=== PATIENT | female | born 1935 | race Caucasian/White ===

== ENCOUNTER 2016-04-25 12:38 | Outpatient (CLI) | payer MEDICARE, OTHER | END 2016-04-25 12:39 | disposition home or self-care (01) | DX: N30.01 Acute cystitis with hematuria (principal) ==

== ENCOUNTER 2016-07-14 07:25 | Outpatient (CLI) | payer MEDICARE, OTHER | END 2016-07-14 07:26 | disposition home or self-care (01) | DX: N30.01 Acute cystitis with hematuria (principal) ==

== ENCOUNTER 2016-07-19 19:27 | Outpatient (CLI) | payer MEDICARE, OTHER | END 2016-07-19 19:28 | disposition home or self-care (01) | DX: Z79.899 Other long term (current) drug therapy (principal); E78.2 Mixed hyperlipidemia; E03.9 Hypothyroidism, unspecified; R73.09 Other abnormal glucose ==

== ENCOUNTER 2017-05-22 15:03 | Outpatient (CLI) | payer MEDICARE, OTHER ==
--- NOTE | 2017-05-23 10:29 | DEXA Report ---
DEXA SCAN: 05/22/2017 CLINICAL INDICATION: Postmenopausal osteoporosis. TECHNIQUE: Dual energy x-ray absorptiometry (DXA) was performed on a [employer] system. Regions measured are the AP spine, femoral neck, and, if needed, forearm. COMPARISON: None. In accordance with the International Society for Clinical Densitometry (ISCD) guidelines, data from previous exams may be reanalyzed using current recommendations and techniques. This is done to allow a more accurate basis for comparison with the current study. FINDINGS: The data for the lumbar spine is as follows: REGION BMD (g/cm/cm) T-SCORE Z-SCORE L1 0.739 -3.3 -1.3 L2 0.851 -2.9 -0.9 L3 0.846 -3.0 -0.9 L4 0.923 -2.3 -0.3 TOTAL 0.846 -2.8 -0.8 NOTE: All evaluable vertebrae are used for classification. The data for the hip is as follows: REGION BMD (g/cm/cm) T-SCORE Z-SCORE Neck 0.775 -1.9 0.5 TOTAL 0.828 -1.4 0.9 IMPRESSION: THE WHO CLASSIFICATION BASED ON THE INTERNATIONAL REFERENCE STANDARD IS OSTEOPOROSIS. THE FRACTURE RISK IS HIGH. RECOMMENDATION: Patients with diagnosis of osteoporosis or osteopenia should have regular bone mineral density assessment. For those eligible for Medicare, routine testing is allowed once every 2 years. Testing frequency can be increased for patients who have rapidly progressing disease or for those who are receiving medical therapy to restore bone mass. COMMENT: World Health Organization (WHO) definitions for osteoporosis and osteopenia: NORMAL BMD: T-score at 1.0 or higher, fracture risk is low. OSTEOPENIA BMD: T-score between 1.0 and -2.5, fracture risk is increased. OSTEOPOROSIS BMD: T-score at 2.5 or lower, fracture risk high. National Osteoporosis Foundation recommends: 1. Obtain adequate dietary calcium (at least 1200 mg per day) and vitamin D (400 -800 international units per day). 2. Participate, as appropriate, in regular weightbearing and muscle- strengthening exercise. 3. Avoid tobacco use and reduce alcohol and caffeine intake. 4. For more detailed information see the website at www.NOF.org. MTDD
== END 2017-05-22 15:04 | disposition home or self-care (01) ==
LOC: DI 15:03
PROVIDERS: ATTEND Internal Medicine
DX: M81.0 Age-related osteoporosis without current pathological fracture (principal)
CPT/HCPCS: 77080

== ENCOUNTER 2017-08-09 08:00 | Outpatient (CLI) | payer MEDICARE, OTHER ==
[2017-08-09 11:32] LABS: BASOPHILS # (AUTO) 0.1 10^3/uL (0.0-0.1); BASOPHILS % (AUTO) 1.3 %; EOSINOPHILS # (AUTO) 0.2 10^3/uL (0.0-0.7); EOSINOPHILS % (AUTO) 4.4 %; HGB - HEMOGLOBIN 13.7 g/dL (12.0-16.0); LYMPHOCYTES # (AUTO) 1.4 10^3/uL (1.5-3.5); LYMPHOCYTES % (AUTO) 27.9 %; MEAN CORPUSCULAR HEMOGLOBIN 30.8 pg (27.0-31.0); MEAN CORPUSCULAR HGB CONC 33.5 g/dL (32.0-36.0); MEAN CORPUSCULAR VOLUME 91.9 fL (81.0-99.0); MEAN PLATELET VOLUME 8.8 fL (7.9-10.8); MONOCYTES # (AUTO) 0.6 10^3/uL (0.0-1.0); MONOCYTES % (AUTO) 11.6 %; NEUTROPHILS # (AUTO) 2.8 10^3/uL (1.5-6.6); NEUTROPHILS % (AUTO) 54.8 %; PLT - PLATELET COUNT 202 10^3/uL (130-450); RED BLOOD COUNT 4.46 10^6/uL (4.20-5.40); RED CELL DISTRIBUTION WIDTH 14.4 % (12.0-15.0)
[2017-08-09 11:52] LABS: ALBUMIN 4.2 g/dL (3.2-5.5); ALBUMIN/GLOBULIN RATIO 1.4 (1.0-2.2); ALKALINE PHOSPHATASE 53 IU/L (42-121); ALT ALANINE AMINOTRANSFERASE 13 IU/L (10-60); AST ASPARTATE AMINOTRANSFERASE 19 IU/L (10-42); BILIRUBIN,TOTAL 0.7 mg/dL (0.2-1.0); BUN - BLOOD UREA NITROGEN 15 mg/dL (6-20); CALCIUM 9.2 mg/dL (8.5-10.3); CARBON DIOXIDE - CO2 25 mmol/L (21-32); CHLORIDE 108 mmol/L (101-111); CHOL/HDL RATIO 3.9 (<4.4); CHOLESTEROL 223 mg/dL; CREATININE 0.8 mg/dL (0.4-1.0); GFR - MDRD 69 (>89); GLUCOSE 114 mg/dL (70-100); HDL CHOLESTEROL 57 mg/dL; LDL CHOLESTEROL,CALCULATED 133 mg/dL; LDL/HDL RATIO 2.3 (<4.4); SODIUM 140 mmol/L (135-145); TOTAL PROTEIN 7.2 g/dL (6.7-8.2); VLDL CHOLESTEROL 33 mg/dL
[2017-08-09 11:53] LABS: LITHIUM 0.31 mmol/L
== END 2017-08-09 08:01 ==
LOC: LAB.R 08:00
PROVIDERS: ATTEND Internal Medicine
DX: E78.5 Hyperlipidemia, unspecified (principal); E03.9 Hypothyroidism, unspecified; M81.8 Other osteoporosis without current pathological fracture; F31.9 Bipolar disorder, unspecified
CPT/HCPCS: 80053; 80061; 80178; 83721; 84443; 85025

== ENCOUNTER 2017-08-28 15:39 | Outpatient (CLI) | payer MEDICARE, OTHER ==
--- NOTE | 2017-08-30 11:06 | Mammography Report ---
DIGITAL SCREENING MAMMOGRAM: 08/28/2017 TECHNIQUE: Bilateral digital CC, exaggerated CC, and MLO projections. COMPARISON: 08/10/2015, 06/26/2013, 06/06/2011 and 03/11/2010. FINDINGS: The breast tissue is heterogeneously dense. There is no dominant mass, architectural distortion, skin thickening, suspicious microcalcifications or interval change. IMPRESSION: NEGATIVE. BI-RADS CODE 1-NEGATIVE. SUGGEST RETURN TO ROUTINE SCREENING IN 12 MONTHS. STANDARD QUALIFYING STATEMENTS: 1. This examination was reviewed with the aid of Computer-Aided Detection (CAD). 2. A negative or benign imaging report should not delay biopsy if clinically suspicious findings are present. Consider surgical consultation if warranted. More than 5% of cancers are not identified by imaging. 3. Dense breasts may obscure an underlying neoplasm. TD: 08/30/2017 10:15
== END 2017-08-28 15:40 | disposition home or self-care (01) ==
LOC: DI 15:39
PROVIDERS: ATTEND Internal Medicine
DX: Z12.31 Encounter for screening mammogram for malignant neoplasm of breast (principal)
CPT/HCPCS: 77067

== ENCOUNTER 2017-10-09 08:00 | Outpatient (CLI) | payer MEDICARE, OTHER ==
[2017-10-09 12:02] LABS: HB2 TOTAL 14.4 g/dL; HEMOGLOBIN A1C 0.6 g/dL
== END 2017-10-09 08:01 ==
LOC: LAB.R 08:00
PROVIDERS: ATTEND Internal Medicine
DX: R73.9 Hyperglycemia, unspecified (principal); E03.9 Hypothyroidism, unspecified
CPT/HCPCS: 82947; 83036; 84443

== ENCOUNTER 2019-01-15 08:15 | Outpatient (CLI) | payer MEDICARE ==
[2019-01-15 08:43] LABS: BASOPHILS # (AUTO) 0.1 10^3/uL (0.0-0.1); BASOPHILS % (AUTO) 0.8 %; EOSINOPHILS # (AUTO) 0.3 10^3/uL (0.0-0.7); EOSINOPHILS % (AUTO) 3.5 %; HGB - HEMOGLOBIN 13.7 g/dL (12.0-16.0); LYMPHOCYTES # (AUTO) 1.5 10^3/uL (1.5-3.5); LYMPHOCYTES % (AUTO) 17.3 %; MEAN CORPUSCULAR HEMOGLOBIN 30.4 pg (27.0-31.0); MEAN CORPUSCULAR HGB CONC 31.6 g/dL (32.0-36.0); MEAN CORPUSCULAR VOLUME 96.2 fL (81.0-99.0); MEAN PLATELET VOLUME 9.8 fL (7.9-10.8); MONOCYTES # (AUTO) 1.1 10^3/uL (0.0-1.0); MONOCYTES % (AUTO) 12.8 %; NEUTROPHILS # (AUTO) 5.6 10^3/uL (1.5-6.6); NEUTROPHILS % (AUTO) 65.3 %; PLT - PLATELET COUNT 221 10^3/uL (130-450); RED CELL DISTRIBUTION WIDTH 13.6 % (12.0-15.0); WHITE BLOOD COUNT 8.6 x10^3/uL (4.8-10.8)
[2019-01-15 09:04] LABS: ALBUMIN/GLOBULIN RATIO 1.2 (1.0-2.2); ALKALINE PHOSPHATASE 56 IU/L (42-121); ALT ALANINE AMINOTRANSFERASE 10 IU/L (10-60); AST ASPARTATE AMINOTRANSFERASE 14 IU/L (10-42); BILIRUBIN,TOTAL 0.8 mg/dL (0.2-1.0); BUN - BLOOD UREA NITROGEN 17 mg/dL (6-20); CALCIUM 9.5 mg/dL (8.5-10.3); CARBON DIOXIDE - CO2 25 mmol/L (21-32); CHLORIDE 109 mmol/L (101-111); CHOL/HDL RATIO 3.5 (<4.4); CHOLESTEROL 219 mg/dL; CREATININE 0.8 mg/dL (0.4-1.0); GFR - MDRD 68 (>89); GLUCOSE 129 mg/dL (70-100); HDL CHOLESTEROL 63 mg/dL; LDL CHOLESTEROL,CALCULATED 135 mg/dL; LDL/HDL RATIO 2.1 (<4.4); SODIUM 143 mmol/L (135-145); TOTAL PROTEIN 7.3 g/dL (6.7-8.2); VLDL CHOLESTEROL 21 mg/dL
[2019-01-15 10:09] LABS: LITHIUM 0.29 mmol/L
== END 2019-01-15 08:16 | disposition home or self-care (01) ==
LOC: LAB 08:15
PROVIDERS: ATTEND Nurse Practitioner
DX: G62.9 Polyneuropathy, unspecified (principal); R73.9 Hyperglycemia, unspecified; E78.5 Hyperlipidemia, unspecified; E03.9 Hypothyroidism, unspecified; M81.8 Other osteoporosis without current pathological fracture; F31.9 Bipolar disorder, unspecified
CPT/HCPCS: 36415; 80053; 80061; 80178; 82306; 83721; 84443; 85025

== ENCOUNTER 2019-01-28 09:37 | Outpatient (CLI) | payer MEDICARE ==
[2019-01-28 10:08] LABS: HEMOGLOBIN A1C 0.6 g/dL; HEMOGLOBIN A1C % 6.1 % (4.6-6.2)
== END 2019-01-28 09:38 | disposition home or self-care (01) ==
LOC: LAB 09:37
PROVIDERS: ATTEND Nurse Practitioner
DX: R73.9 Hyperglycemia, unspecified (principal)
CPT/HCPCS: 36415; 82607; 83036

== ENCOUNTER 2019-03-30 15:00 | Emergency (ER) | payer MEDICARE, OTHER ==
--- NOTE | 2019-03-30 15:34 | ED Physician Documentation ---
History of Present Illness - Stated complaint Stated Complaint: R KNEE PX - Chief complaint Chief Complaint: Ext Problem - Additonal information Additional information: This is an 83-year-old female presents with right knee pain. This morning she was standing and she felt a little bit of a pop and she had pain just superior to her patella on the right. She states she may have been twisting when this occured but does not think she hit the knee or fell. Since then she has had extreme difficulty standing on the knee. She has pain when she extends her knee past around 45 degrees. She is able to flex the knee without discomfort. She d enies any weakness or numbness distal to the knee. She has not had any history of surgeries to this knee. No direct trauma to the joint or falls. No fever. She has tried ibuprofen and ice without much relief. Review of Systems Constitutional: denies: Fever Cardiac: denies: Chest pain / pressure Respiratory: denies: Dyspnea GI: denies: Abdominal Pain Skin: denies: Rash Musculoskeletal: reports: Joint pain PD PAST MEDICAL HISTORY - Past Medical History Cardiovascular: None Respiratory: None Endocrine/Autoimmune: HyPOthyroidism GI: None : None HEENT: None Psych: Claustrophobia Musculoskeletal: None Derm: None - Past Surgical History General: Colonoscopy HEENT: Cataracts - Present Medications Home Medications: Ambulatory Orders Medication Instructions Recorded Confirmed Bimatoprost 0.03% [Lumigan] 1 drops OPTH QPM 06/11/14 06/11/14 Levothyroxine [Synthroid] 75 mcg PO QDAC 06/11/14 06/11/14 [place] Carbonate [[place] 450 mg PO DAILY 06/11/14 06/11/14 Carbonate ER] Pravastatin Sodium 40 mg PO DAILY 06/11/14 06/11/14 - Allergies Allergies/Adverse Reactions: Allergies Allergy/AdvReac Type Severity Reaction Status Date / Time codeine Allergy Rash Verified 03/30/19 15:05 Sulfa (Sulfonamide Allergy Rash Verified 03/30/19 15:05 Antibiotics) hydrocodone AdvReac Nausea Verified 03/30/19 15:05 PD ED PE NORMAL - Vitals Vital signs reviewed: Yes - General General: Alert and oriented X 3 - HEENT HEENT: Atraumatic - Cardiac Cardiac: Strong equal pulses - Respiratory Respiratory: No respiratory distress - Extremities Extremities: Other (Knees are grossly symmetric in appearance. There is no tenderness along the joint line, or patellar tendon or the patella itself, no tibial or fibular tenderness on the right. There is no laxity with testing of the LCL, MCL, ACL, or PCL. Patient is able to flex her knee against resistance without issue, but extension causes her pain and passive Extension of the knee also causes pain past around 45 degrees. Sensation intact light touch distally.) Results - Vitals Vitals: Oxygen O2 Source Room air - Rads (name of study) XR Radiology: Other (Extensive arthritis and osteopenia, small joint effusion, no fracture seen.) PD MEDICAL DECISION MAKING - ED course Complexity details: considered differential (Pathologic fracture, tendinitis, tendon rupture, ligament injury) ED course: Patient is nontoxic-appearing on arrival. Her knee is grossly symmetric compared to her left, and her exam does not show any laxity of her major ligaments. She does have some tenderness located over the quadriceps tendon but a [id number] ultrasound does not show any disruption of the ligament and her extensor mechanism is intact. She has an x-ray performed which showed extensive arthritis without signs of fracture, but despite being put into a hinged knee brace and with assistance of a walker she is unable to bear weight on her knee where as typically she is ambulatory with out assistance. Given her inability to bear any weight, I am concerned for occult fracture versus other more significant derangement the knee, MRI was ordered. Pt was signed out to Dr. Uriostegui to follow up on results of MRI and disposition as appropriate. Departure - Departure Disposition: 01 Home, Self Care Clinical Impression: Knee pain Qualifiers: Chronicity: acute Laterality: right Qualified Code(s): M25.561 - Pain in right knee Condition: Good Instructions: ED Knee Pain [facility]O Follow-Up: [facility] [Provider Group] - Within 1 week Quiana Henderson ARNP, [employer] REPAIRER-C [Primary Care Provider] - Within 1 week Comments: Use the walker and the knee brace at home. Follow-up with orthopedics for further care. Continue Motrin at home, 600 mg every 8 hours. You can use Tylenol as well. IMPRESSION: 1. Partial-thickness tear of the fibular collateral ligament near its origin. 2. Partial-thickness tear of the proximal MCL. 3. The inferior margin of the lateral retinaculum is attenuated might be par tially torn. 4. Moderate knee joint effusion with synovitis. 5. Edema within the superolateral aspect of Hoffa's fat pad consistent with patellofemoral impingement syndrome. 6. Mild deep infrapatellar bursitis. 7. Mild MCL bursitis. 8. Partially ruptured popliteal cyst. 9. Small tibiofibular joint effusion. 10. 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 11. Complex degenerative tear and extrusion of the lateral meniscus. 12. Horizontal oblique undersurface tear of the posterior horn of the medial meniscus with flipped fragment into the meniscotibial gutter. 13. Other chronic findings detailed above. Discharge Date/Time: 03/30/19 21:30
--- NOTE | 2019-03-30 16:28 | XRAY Report ---
Reason: R knee pain, mostly sup to patella Procedure Date: 03/30/2019 Accession Number: [id number] / [id number] Procedure: XR - Knee 4 View RT CPT Code: Final Report FULL RESULT: EXAM: RIGHT KNEE RADIOGRAPHY EXAM DATE: 03/30/2019 04:01 PM. CLINICAL HISTORY: R knee pain, mostly sup to patella. COMPARISON: None. TECHNIQUE: 4 views. FINDINGS: Bones: The bones are osteopenic. No displaced acute fracture. No suspicious osseous lesion. Joints: Small knee joint effusion. Severe lateral compartment osteoarthritis with bulky marginal osteophytes. Moderate medial compartment osteoarthritis. Mild patellofemoral compartment osteoarthritis. No dislocation. Other: None. IMPRESSION: 1. The bones are osteopenic. 2. No displaced acute fracture. 3. Small knee joint effusion. 4. Lateral compartment dominant tricompartmental osteoarthritis. 5. If pain persists or worsens, a nonemergent outpatient noncontrast MRI knee may be helpful for further evaluation. RADIA
[2019-03-30] MEDS ORDERED: oxyCODONE 5 MG TABLET PO STA (17:41)
[2019-03-30] MEDS ORDERED: ONDANSETRON ODT 4 MG TABLET TL STA (17:41)
[2019-03-30] MEDS ORDERED: ACETAMINOPHEN 325 MG TABLET PO STA (17:55)
[2019-03-30] MEDS ORDERED: IBUPROFEN 800 MG TABLET PO STA (17:55)
--- NOTE | 2019-03-30 20:55 | MRI Report ---
Reason: Pop then pain in knee, inability to bear weight Procedure Date: 03/30/2019 Accession Number: [id number] / [id number] Procedure: MRI - Knee RT W/O CPT Code: Final Report FULL RESULT: EXAM: RIGHT KNEE MRI WITHOUT CONTRAST EXAM DATE: 03/30/2019 07:05 PM. CLINICAL HISTORY: [place] pop then pain in knee, inability to bear weight. COMPARISON: None. TECHNIQUE: Multiplanar, multisequence T1-weighted and fluid-sensitive sequences of the knee without contrast. Other: None. FINDINGS: Quality: Study is motion graded Bones: No fractures or subluxations. No suspicious osseous lesions. Articular Cartilage: --Patellofemoral compartment: Broad areas of full-thickness chondromalacia throughout the lateral patellar facets extending to the patellar apex with underlying subchondral edema/early subchondral cyst formation. There are also broad areas of full-thickness chondromalacia within the lateral trochlea with areas of underlying subchondral bone marrow edema/early subchondral cyst formation. There is intermediate grade chondromalacia within the medial patellar facet. --Lateral compartment: There are broad areas of full-thickness chondromalacia within the weightbearing lateral compartment with bulky marginal osteophytes are present. --Medial compartment: Intermediate grade chondromalacia of the weightbearing medial compartment. Question small flap tear of the weightbearing medial femoral condyle. Medial Meniscus: Nondisplaced tear involving the body and posterior horn of the medial meniscus dominantly horizontal oblique undersurface tear with free edge fraying. There is a flipped fragment into the meniscotibial recess. Lateral Meniscus: Complex degenerative tear of the lateral meniscus including full-thickness tear/maceration of the anterior horn/body with extrusion of the lateral meniscus. There is a horizontal oblique component of the tear extending to the posterior horn with maceration of the free edge. The posterior horn is posteriorly displaced. Cruciate Ligaments: The anterior and posterior cruciate ligaments are intact. Collateral Ligaments: Partial-thickness tear of the fibular collateral ligament near its origin. Partial-thickness tear of the proximal MCL. Tendons: The quadriceps, patellar, semimembranosus, and popliteus tendons are unremarkable. The patella tendon is redundant but intact. Musculature: No edema or fatty atrophy. Other: -- Edema within the superolateral aspect of Hoffa's fat pad consistent with patellofemoral impingement syndrome. --Moderate knee joint effusion with synovitis, most pronounced in the patellofemoral compartment --Mild deep infrapatellar bursitis. --Mild MCL bursitis. --Partially ruptured popliteal cyst. The popliteal cyst measures 3.5 x 2.4 x 0.7 cm and extends cephalad along the medial head of the gastrocnemius. --Small ganglion cyst associated with the origins of the medial and lateral heads of the gastrocnemius. --Small tibiofibular joint effusion. -- The inferior margin of the lateral retinaculum is attenuated might be partially torn. -- The medial retinaculum is not well evaluated secondary to motion artifact. IMPRESSION: 1. Partial-thickness tear of the fibular collateral ligament near its origin. 2. Partial-thickness tear of the proximal MCL. 3. The inferior margin of the lateral retinaculum is attenuated might be partially torn. 4. Moderate knee joint effusion with synovitis. 5. Edema within the superolateral aspect of Hoffa's fat pad consistent with patellofemoral impingement syndrome. 6. Mild deep infrapatellar bursitis. 7. Mild MCL bursitis. 8. Partially ruptured popliteal cyst. 9. Small tibiofibular joint effusion. 10. 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 11. Complex degenerative tear and extrusion of the lateral meniscus. 12. Horizontal oblique undersurface tear of the posterior horn of the medial meniscus with flipped fragment into the meniscotibial gutter. 13. Other chronic findings detailed above. RADIA
--- NOTE | 2019-03-30 21:26 | ED Physician Documentation ---
ED Addendum - Addendum Addendum: 03/30/19 21:[address] Ingram, orthopedics. recommends follow up in clinic. Knee brace vs immobilizer. Patient is actually doing quite well with a hinged knee brace and a walker. It is at 10 and 30 degrees. She cannot take any narcotic pain medication secondary to vomiting. She is going to utilize Motrin and Tylenol at home. Neurovascularly intact. Results reviewed with patient and family. Patient counseled regarding signs and symptoms for which I believe and urgent re-evaluation would be necessary. Patient with good understanding of and agreement to plan and is comfortable going home at this time This document was made in part using voice recognition software. While efforts are made to proofread this document, sound alike and grammatical errors may occur. 1. Partial-thickness tear of the fibular collateral ligament near its origin. 2. Partial-thickness tear of the proximal MCL. 3. The inferior margin of the lateral retinaculum is attenuated might be partially torn. 4. Moderate knee joint effusion with synovitis. 5. Edema within the superolateral aspect of Hoffa's fat pad consistent with patellofemoral impingement syndrome. 6. Mild deep infrapatellar bursitis. 7. Mild MCL bursitis. 8. Partially ruptured popliteal cyst. 9. Small tibiofibular joint effusion. 10. 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 11. Complex degenerative tear and extrusion of the lateral meniscus. 12. Horizontal oblique undersurface tear of the posterior horn of the medial meniscus with flipped fragment into the meniscotibial gutter. 13. Other chronic findings detailed above. 03/30/19 21:53 Departure - Departure Disposition: 01 Home, Self Care Clinical Impression: Knee pain Qualifiers: Chronicity: acute Laterality: right Qualified Code(s): M25.561 - Pain in right knee Condition: Good Instructions: ED Knee Pain [facility]O Follow-Up: Quiana Henderson ARNP, THERMOSPRAY OPERATOR-C [Primary Care Provider] - Within 1 week [facility] [Provider Group] - Within 1 week Comments: Use the walker and the knee brace at home. Follow-up with orthopedics for further care. Continue Motrin at home, 600 mg every 8 hours. You can use Tylenol as well. IMPRESSION: 1. Partial-thickness tear of the fibular collateral ligament near its origin. 2. Partial-thickness tear of the proximal MCL. 3. The inferior margin of the lateral retinaculum is attenuated might be partially torn. 4. Moderate knee joint effusion with synovitis. 5. Edema within the superolateral aspect of Hoffa's fat pad consistent with patellofemoral impingement syndrome. 6. Mild deep infrapatellar bursitis. 7. Mild MCL bursitis. 8. Partially ruptured popliteal cyst. 9. Small tibiofibular joint effusion. 10. 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 11. Complex degenerative tear and extrusion of the lateral meniscus. 12. Horizontal oblique undersurface tear of the posterior horn of the medial meniscus with flipped fragment into the meniscotibial gutter. 13. Other chronic findings detailed above. Discharge Date/Time: 03/30/19 21:30
[2019-03-30 21:31] VITALS: BP 147/82
== END 2019-03-30 21:30 | disposition home or self-care (01) ==
LOC: ED 15:00
DX: S83.241A Other tear of medial meniscus, current injury, right knee, initial encounter (principal); S83.281A Other tear of lateral meniscus, current injury, right knee, initial encounter; S83.411A Sprain of medial collateral ligament of right knee, initial encounter; X58.XXXA Exposure to other specified factors, initial encounter; M70.51 Other bursitis of knee, right knee; M65.861 Other synovitis and tenosynovitis, right lower leg; M66.0 Rupture of popliteal cyst; M94.261 Chondromalacia, right knee
CPT/HCPCS: 73564; 73721; 99284; A9270

== ENCOUNTER 2020-01-30 07:27 | Outpatient (CLI) | payer MEDICARE, OTHER ==
[2020-01-30 07:41] LABS: BASOPHILS # (AUTO) 0.1 10^3/uL (0.0-0.1); BASOPHILS % (AUTO) 1.2 %; EOSINOPHILS # (AUTO) 0.3 10^3/uL (0.0-0.7); EOSINOPHILS % (AUTO) 4.2 %; HGB - HEMOGLOBIN 14.1 g/dL (12.0-16.0); LYMPHOCYTES # (AUTO) 1.5 10^3/uL (1.5-3.5); LYMPHOCYTES % (AUTO) 25.2 %; MEAN CORPUSCULAR HEMOGLOBIN 31.1 pg (27.0-31.0); MEAN CORPUSCULAR VOLUME 96.9 fL (81.0-99.0); MEAN PLATELET VOLUME 9.7 fL (7.9-10.8); MONOCYTES # (AUTO) 0.8 10^3/uL (0.0-1.0); MONOCYTES % (AUTO) 12.7 %; NEUTROPHILS # (AUTO) 3.4 10^3/uL (1.5-6.6); NEUTROPHILS % (AUTO) 56.5 %; PLT - PLATELET COUNT 226 10^3/uL (130-450); RED BLOOD COUNT 4.54 10^6/uL (4.20-5.40); RED CELL DISTRIBUTION WIDTH 13.7 % (12.0-15.0)
[2020-01-30 07:58] LABS: ALBUMIN 4.2 g/dL (3.2-5.5); ALBUMIN/GLOBULIN RATIO 1.3 (1.0-2.2); ALKALINE PHOSPHATASE 57 IU/L (42-121); ALT ALANINE AMINOTRANSFERASE 12 IU/L (10-60); AST ASPARTATE AMINOTRANSFERASE 15 IU/L (10-42); BILIRUBIN,TOTAL 0.6 mg/dL (0.2-1.0); BUN - BLOOD UREA NITROGEN 17 mg/dL (6-20); CALCIUM 9.8 mg/dL (8.5-10.3); CARBON DIOXIDE - CO2 23 mmol/L (21-32); CHLORIDE 107 mmol/L (101-111); CHOL/HDL RATIO 3.8 (<4.4); CHOLESTEROL 216 mg/dL; CREATININE 0.8 mg/dL (0.4-1.0); GLUCOSE 133 mg/dL (70-100); HDL CHOLESTEROL 57 mg/dL; LDL CHOLESTEROL,CALCULATED 123 mg/dL; LDL/HDL RATIO 2.2 (<4.4); SODIUM 142 mmol/L (135-145); TOTAL PROTEIN 7.5 g/dL (6.7-8.2); VLDL CHOLESTEROL 36 mg/dL
== END 2020-01-30 07:28 | disposition home or self-care (01) ==
LOC: LAB 07:27
PROVIDERS: ATTEND Nurse Practitioner
DX: E03.9 Hypothyroidism, unspecified (principal); R73.9 Hyperglycemia, unspecified; E78.5 Hyperlipidemia, unspecified; F31.9 Bipolar disorder, unspecified; Z79.899 Other long term (current) drug therapy
CPT/HCPCS: 36415; 80053; 80061; 82306; 82607; 83721; 84443; 85025

== ENCOUNTER 2020-03-24 15:38 | Outpatient (CLI) | payer MEDICARE, OTHER ==
--- NOTE | 2020-03-24 18:11 | DEXA Report ---
PROCEDURE: Dexa Spine and/or Hip INDICATIONS: POST MENOPAUSAL TECHNIQUE: Dual energy x-ray absorptiometry (DXA) was performed on a [employer] System. Regions measur ed are the AP Spine, femoral neck, and if needed forearm. COMPARISON: Dexa, 05/22/2017. FINDINGS: Lumbar Spine: Bone Mineral Density 0.881 g/cm/cm,T score -2.5. Left Hip: Bone Mineral Density 0.796 g/cm/cm,T score -1.7. Left Femoral Neck: Bone Mineral Density 0.735 g/cm/cm, T score -2.2. (T score greater or equal to -1.0: NORMAL) (T score from -1.1 to -2.4: OSTEOPENIA) (T score less than or equal to -2.5 to: OSTEOPOROSIS) Impression: Based on WHO criteria, the patient is osteoporotic. Compared to the last exam on 8, bone mineral density in the lumbar spine has statistically improved. Bone mineral density in the l eft hip is statistical significantly changed. Patients with diagnosis of osteoporosis or osteopenia should have regular bone mineral density assess ment. For those eligible for Medicare, routine testing is allowed once every 2 years. Testing frequ ency can be increased for patients who have rapidly progressing disease or for those who are receivin g medical therapy to restore bone mass. Reviewed by: Sanna Gray MD on 03/24/2020 6:09 PM PST Approved by: Sanna Gray MD on 03/24/2020 6:09 PM PST Station ID: [id number]
== END 2020-03-24 15:39 | disposition home or self-care (01) ==
LOC: DI 15:38
PROVIDERS: ATTEND Nurse Practitioner
DX: M81.0 Age-related osteoporosis without current pathological fracture (principal)

== ENCOUNTER 2020-04-21 09:04 | Outpatient (CLI) | payer MEDICARE, OTHER ==
--- NOTE | 2020-04-22 10:28 | Mammography Report ---
BILATERAL DIGITAL SCREENING MAMMOGRAM 3D/2D: 04/21/2020 CLINICAL: Routine screening. Comparison is made to exams dated: 08/28/2017 mammogram, 08/10/2015 mammogram, 06/26/2013 mammogram, 06/05 mammogram, and 03/11/2010 mammogram - [facility]. There are scattered fibrog landular elements in both breasts. There is a possible new 0.4 cm irregular equal density asymmetry in the left breast middle depth medi al region seen on the craniocaudal view only. No other significant masses, calcifications, or other findings are seen in either breast. IMPRESSION: INCOMPLETE: NEEDS ADDITIONAL IMAGING EVALUATION The possible new 0.4 cm irregular equal density asymmetry in the left breast is indeterminate. Addit ional views with possible ultrasound are recommended. This exam was interpreted at Station ID: [id number]. NOTE: For mammograms, a report in lay terms will be sent to the patient. Approximately 15% of breast malignancies will not be visualized mammographically. In the management of a palpable breast mass, a negative mammogram must not discourage biopsy of a clinically suspicious lesion. Electronically Signed By: Raymond morales/aisha:04/21/2020 10:09:25 ACR BI-RADS Category 0: Incomplete 3340F PARENCHYMAL PATTERN: (A) - The breast(s) demonstrate(s) scattered fibroglandular densities. BI-RADS CATEGORY: (0) - 0 Mammo and [place] [id number] Immediate follow-up LATERALITY: (L)
== END 2020-04-21 09:05 | disposition home or self-care (01) ==
LOC: DI 09:04
PROVIDERS: ATTEND Nurse Practitioner
DX: Z12.31 Encounter for screening mammogram for malignant neoplasm of breast (principal); N64.89 Other specified disorders of breast

== ENCOUNTER 2020-05-14 09:08 | Outpatient (CLI) | payer MEDICARE, OTHER ==
--- NOTE | 2020-05-15 13:20 | Mammography Report ---
UNILATERAL LEFT DIGITAL DIAGNOSTIC MAMMOGRAM 3D/2D: 05/14/2020 CLINICAL: Additional evaluation requested from prior study. Patient returns today to evaluate an asym metry in left breast. Comparison is made to exams dated: 04/21/2020 mammogram, 08/28/2017 mammogram, and 08/10/2015 mammogram - [facility]. There are scattered fibroglandular elements in left breast. There is a benign equal density asymmetry in the left breast at 9 o'clock anterior depth. The asymm etry appears less prominent in the CC view. The asymmetry localizes to the 9 o'clock position on late ral view, and appears stable when compared to prior MLO views dating back to the exam from 08/10/2015. No other significant masses or calcifications are seen in the breast. IMPRESSION: BENIGN There is no mammographic evidence of malignancy. A 1 year screening mammogram is recommended. This exam was interpreted at Station ID: [id number]. NOTE: For mammograms, a report in lay terms will be sent to the patient. Approximately 15% of breast malignancies will not be visualized mammographically. In the management of a palpable breast mass, a negative mammogram must not discourage biopsy of a clinically suspicious lesion. Electronically Signed By: George esquivel/aisha:05/14/2020 10:05:49 ACR BI-RADS Category 2: Benign Finding(s) 3342F PARENCHYMAL PATTERN: (A) - The breast(s) demonstrate(s) scattered fibroglandular densities. BI-RADS CATEGORY: (2) - 2 RECOMMENDATION: (ANNUAL) - Recommend routine annual screening mammography. [id number] 1 year screening LATERALITY: (B)
== END 2020-05-14 09:09 | disposition home or self-care (01) ==
LOC: DI 09:08
PROVIDERS: ATTEND Nurse Practitioner
DX: R92.8 Other abnormal and inconclusive findings on diagnostic imaging of breast (principal)

== ENCOUNTER 2021-02-23 08:01 | Outpatient (CLI) | payer MEDICARE, OTHER ==
[2021-02-23 08:19] LABS: BASOPHILS # (AUTO) 0.1 10^3/uL (0.0-0.1); BASOPHILS % (AUTO) 1.2 %; EOSINOPHILS # (AUTO) 0.3 10^3/uL (0.0-0.7); EOSINOPHILS % (AUTO) 5.1 %; HCT - HEMATOCRIT 44.2 % (37.0-47.0); HGB - HEMOGLOBIN 14.1 g/dL (12.0-16.0); LYMPHOCYTES # (AUTO) 1.5 10^3/uL (1.5-3.5); LYMPHOCYTES % (AUTO) 28.8 %; MEAN CORPUSCULAR HEMOGLOBIN 30.3 pg (27.0-31.0); MEAN CORPUSCULAR HGB CONC 31.9 g/dL (32.0-36.0); MEAN CORPUSCULAR VOLUME 94.8 fL (81.0-99.0); MEAN PLATELET VOLUME 9.9 fL (7.9-10.8); MONOCYTES # (AUTO) 0.7 10^3/uL (0.0-1.0); MONOCYTES % (AUTO) 12.8 %; NEUTROPHILS # (AUTO) 2.6 10^3/uL (1.5-6.6); NEUTROPHILS % (AUTO) 51.9 %; PLT - PLATELET COUNT 239 10^3/uL (130-450); RED BLOOD COUNT 4.66 10^6/uL (4.20-5.40); RED CELL DISTRIBUTION WIDTH 13.8 % (12.0-15.0); WHITE BLOOD COUNT 5.1 x10^3/uL (4.8-10.8)
[2021-02-23 08:41] LABS: ALBUMIN 4.3 g/dL (3.2-5.5); ALBUMIN/GLOBULIN RATIO 1.3 (1.0-2.2); ALKALINE PHOSPHATASE 52 IU/L (42-121); ALT ALANINE AMINOTRANSFERASE 17 IU/L (10-60); AST ASPARTATE AMINOTRANSFERASE 21 IU/L (10-42); BILIRUBIN,TOTAL 1.3 mg/dL (0.2-1.0); BUN - BLOOD UREA NITROGEN 23 mg/dL (6-20); CALCIUM 9.9 mg/dL (8.5-10.3); CARBON DIOXIDE - CO2 25 mmol/L (21-32); CHLORIDE 104 mmol/L (101-111); CHOL/HDL RATIO 4.7 (<4.4); CHOLESTEROL 256 mg/dL; CREATININE 0.8 mg/dL (0.4-1.0); GFR - MDRD 68 (>89); GLUCOSE 132 mg/dL (70-100); HDL CHOLESTEROL 55 mg/dL; LDL CHOLESTEROL,CALCULATED 155 mg/dL; LDL/HDL RATIO 2.8 (<4.4); POTASSIUM 4.1 mmol/L (3.5-5.0); SODIUM 139 mmol/L (135-145); TOTAL PROTEIN 7.5 g/dL (6.7-8.2); TRIGLYCERIDES 228 mg/dL; VLDL CHOLESTEROL 46 mg/dL
[2021-02-23 08:52] LABS: THYROID STIMULATING HORMONE 6.76 uIU/mL (0.34-5.60)
[2021-02-23 09:03] LABS: FOLATE 13.36 ng/mL (5.90 - >24.8)
[2021-02-23 10:54] LABS: FREE T4 (FREE THYROXINE) 0.8 ng/dL (0.58-1.64)
== END 2021-02-23 08:02 | disposition home or self-care (01) ==
LOC: LAB 08:01
PROVIDERS: ATTEND Nurse Practitioner Family
DX: F32.A Depression, unspecified (principal); M81.0 Age-related osteoporosis without current pathological fracture; E78.5 Hyperlipidemia, unspecified; G60.9 Hereditary and idiopathic neuropathy, unspecified
CPT/HCPCS: 36415; 80053; 80061; 82306; 82607; 82746; 83721; 84439; 84443; 85025

== ENCOUNTER 2021-05-06 08:08 | Outpatient (CLI) | payer MEDICARE, OTHER ==
[2021-05-06 09:02] LABS: THYROID STIMULATING HORMONE < 0.08 uIU/mL (0.34-5.60)
[2021-05-06 09:10] LABS: ALBUMIN 4.2 g/dL (3.2-5.5); ALBUMIN/GLOBULIN RATIO 1.2 (1.0-2.2); ALKALINE PHOSPHATASE 47 IU/L (42-121); ALT ALANINE AMINOTRANSFERASE 17 IU/L (10-60); AST ASPARTATE AMINOTRANSFERASE 18 IU/L (10-42); BILIRUBIN,TOTAL 0.9 mg/dL (0.2-1.0); BUN - BLOOD UREA NITROGEN 19 mg/dL (6-20); CALCIUM 9.8 mg/dL (8.5-10.3); CARBON DIOXIDE - CO2 25 mmol/L (21-32); CHLORIDE 106 mmol/L (101-111); CHOL/HDL RATIO 3.9 (<4.4); CHOLESTEROL 216 mg/dL; GFR - MDRD 52 (>89); GLUCOSE 136 mg/dL (70-100); HDL CHOLESTEROL 55 mg/dL; LDL CHOLESTEROL,CALCULATED 129 mg/dL; LDL/HDL RATIO 2.3 (<4.4); POTASSIUM 4.2 mmol/L (3.5-5.0); SODIUM 140 mmol/L (135-145); TOTAL PROTEIN 7.6 g/dL (6.7-8.2); TRIGLYCERIDES 161 mg/dL; VLDL CHOLESTEROL 32 mg/dL
== END 2021-05-06 08:09 | disposition home or self-care (01) ==
LOC: LAB 08:08
PROVIDERS: ATTEND Nurse Practitioner Family
DX: E03.9 Hypothyroidism, unspecified (principal); E78.5 Hyperlipidemia, unspecified
CPT/HCPCS: 36415; 80053; 80061; 83721; 84439; 84443

== ENCOUNTER 2021-07-14 08:04 | Outpatient (CLI) | payer MEDICARE, OTHER ==
[2021-07-14 08:43] LABS: THYROID STIMULATING HORMONE 0.11 uIU/mL (0.34-5.60)
[2021-07-14 08:45] LABS: FREE T4 (FREE THYROXINE) 1.21 ng/dL (0.58-1.64)
== END 2021-07-14 08:05 | disposition home or self-care (01) ==
LOC: LAB 08:04
PROVIDERS: ATTEND Nurse Practitioner Family
DX: E03.9 Hypothyroidism, unspecified (principal)
CPT/HCPCS: 36415; 84439; 84443

== ENCOUNTER 2021-10-08 08:17 | Outpatient (CLI) | payer MEDICARE, OTHER ==
[2021-10-08 08:57] LABS: ALBUMIN 4.2 g/dL (3.2-5.5); ALBUMIN/GLOBULIN RATIO 1.4 (1.0-2.2); ALKALINE PHOSPHATASE 51 IU/L (42-121); ALT ALANINE AMINOTRANSFERASE 15 IU/L (10-60); AST ASPARTATE AMINOTRANSFERASE 17 IU/L (10-42); BILIRUBIN,TOTAL 0.7 mg/dL (0.2-1.0); BUN - BLOOD UREA NITROGEN 18 mg/dL (6-20); CALCIUM 9.8 mg/dL (8.5-10.3); CARBON DIOXIDE - CO2 23 mmol/L (21-32); CHLORIDE 105 mmol/L (101-111); CHOL/HDL RATIO 4.1 (<4.4); CHOLESTEROL 235 mg/dL; CREATININE 0.9 mg/dL (0.4-1.0); GFR - MDRD 59 (>89); GLUCOSE 132 mg/dL (70-100); HDL CHOLESTEROL 57 mg/dL; LDL CHOLESTEROL,CALCULATED 147 mg/dL; LDL/HDL RATIO 2.6 (<4.4); POTASSIUM 4.2 mmol/L (3.5-5.0); SODIUM 138 mmol/L (135-145); TOTAL PROTEIN 7.3 g/dL (6.7-8.2); TRIGLYCERIDES 157 mg/dL; VLDL CHOLESTEROL 31 mg/dL
[2021-10-08 09:09] LABS: THYROID STIMULATING HORMONE 0.52 uIU/mL (0.34-5.60)
[2021-10-08 13:24] LABS: ESTIMATED AVERAGE GLUCOSE 128 mg/dL (70-100); HEMOGLOBIN A1c% 6.1 % (4.27-6.07)
== END 2021-10-08 08:18 | disposition home or self-care (01) ==
LOC: LAB 08:17
PROVIDERS: ATTEND Nurse Practitioner Family
DX: E03.9 Hypothyroidism, unspecified (principal); R73.9 Hyperglycemia, unspecified; E78.5 Hyperlipidemia, unspecified
CPT/HCPCS: 36415; 80053; 80061; 83036; 83721; 84443

== ENCOUNTER 2022-03-31 08:15 | Outpatient (CLI) | payer MEDICARE, OTHER ==
--- NOTE | 2022-03-31 12:07 | DEXA Report ---
PROCEDURE: Dexa Spine and/or Hip INDICATIONS: OSTEOPOROSIS TECHNIQUE: Dual energy x-ray absorptiometry (DXA) was performed on a [employer] System. Regions measur ed are the AP Spine, femoral neck, and if needed forearm. COMPARISON: 03/24/2020 FINDINGS: Lumbar Spine: Bone Mineral Density 0.919 g/cm/cm,T score -2.3, moderate osteopenia Left Femoral Neck: Bone Mineral Density 0.753 g/cm/cm, T score -2.1, moderate osteopenia Left Hip: Bone Mineral Density 0.834 g/cm/cm,T score -1.4, mild osteopenia (T score greater or equal to -1.0: NORMAL) (T score from -1.1 to -2.4: OSTEOPENIA) (T score less than or equal to -2.5 to: OSTEOPOROSIS) Impression: Moderate osteopenia. Patient is at increased risk for fracture. Patient has demonstrated statistically significant improvement in left hip bone mineral density since the prior study. Patients with diagnosis of osteoporosis or osteopenia should have regular bone mineral density assess ment. For those eligible for Medicare, routine testing is allowed once every 2 years. Testing frequ ency can be increased for patients who have rapidly progressing disease or for those who are receivin g medical therapy to restore bone mass. Reviewed by: Raymond Ramirez MD on 03/31/2022 12:06 PM PST Approved by: Raymond Ramirez MD on 03/31/2022 12:06 PM PST Station ID: [id number]
== END 2022-03-31 08:16 | disposition home or self-care (01) ==
LOC: DI 08:15
PROVIDERS: ATTEND Nurse Practitioner Family
DX: M85.89 Other specified disorders of bone density and structure, multiple sites (principal)

== ENCOUNTER 2023-02-23 08:42 | Outpatient (CLI) | payer MEDICARE, OTHER ==
[2023-02-23 09:40] LABS: LITHIUM 0.42 mmol/L
== END 2023-02-23 08:43 | disposition home or self-care (01) ==
LOC: LAB 08:42
PROVIDERS: ATTEND Nurse Practitioner Family
DX: F31.9 Bipolar disorder, unspecified (principal)
CPT/HCPCS: 36415; 80178